=== PATIENT | female | born 1990 | race Caucasian/White ===

== ENCOUNTER 2020-12-22 15:00 | Emergency (ER) | payer MEDICAID ==
[~2020-12-22] VITALS: Ht 165.1 cm; Wt 61.0 kg
[2020-12-22] MEDS ORDERED: KETOROLAC 60MG/2ML VIAL IM ONE (16:45)
[2020-12-22 20:30] VITALS: BP 110/79
== END 2020-12-22 20:39 | disposition home or self-care (01) ==
LOC: ER 15:00
DX: F12.10 Cannabis abuse, uncomplicated (principal); S16.1XXA Strain of muscle, fascia and tendon at neck level, initial encounter; I49.9 Cardiac arrhythmia, unspecified; V49.40XA Driver injured in collision with unspecified motor vehicles in traffic accident, initial encounter; Y93.89 Activity, other specified; Y92.89 Other specified places as the place of occurrence of the external cause; Y99.8 Other external cause status
CPT/HCPCS: 71046; 72040; 73000; 73090; 93005; 96372; 99285; J1885